=== PATIENT | male | born 1960 | race Caucasian/White ===

== ENCOUNTER 2017-06-30 06:17 | Emergency (ER) | payer SELFPAY ==
[~2017-06-30] VITALS: Ht 177.8 cm; Wt 88.0 kg
[~2017-06-30 06:17] MED LIST: CLIN1CAP6 PO; DOXY100T PO; TYLE3 PO; Z.0.NO CURRENT MEDS
[2017-06-30 06:20] VITALS: BP 200/102; PULSE 74; RESP 20; TEMP 98.3; O2SAT 98
--- NOTE | 2017-06-30 07:23 | PD ---
HPI Chief Complaint: cough/hemoptysis Time Seen by Provider: 07:11 Travel History International Travel<30 days: No Contact w/Intl Traveler<30days: No Traveled to known affect area: No History of Present Illness HPI 56yo M here with c/o worsening cough for the last 3 days associated with blood tinged sputum in the last 12 hours or so. Said he is a long time cigarette smoker but the cough is worst than normal. He has no PMH but has not seen a physician in years. Pt complains of nasal congestion, throat pain with coughing , and sob. Denies any fever, chest pain, nausea, abdominal pain, focal weakness or numbness. Denies any history of tuberculosis, PE/DVT, recent traveling, recent surgery. PFSH Past Medical History Medical History: Denies Significant Hx Tetanus Vaccination: < 5 Years Influenza Vaccination: No Past Surgical History Surgical History: No Previous Surgery Social History Alcohol Use: Yes (2 BEERS A DAY) Tobacco Use: Yes (04/27 A DAY) Substance Use: No Allergies-Medications (Allergen,Severity, Reaction): Coded Allergies: No Known Allergies (Verified Adverse Reaction, Unknown, 06/30/17) Reported Meds & Prescriptions Reported Meds & Active Scripts Active Review of Systems Except as stated in HPI: all other systems reviewed are Neg Physical Exam Narrative GENERAL: 56yo M in mild distress. SKIN: Focused skin assessment warm/dry. HEAD: Atraumatic. Normocephalic. EYES: Pupils equal and round. No scleral icterus. No injection or drainage. ENT: +Nasal congestion and edema in left nasal turbinate. Throat: Uvula midline , nonerythematous. No tonsillar exudate. NECK: Trachea midline. No JVD. CARDIOVASCULAR: Regular rate and rhythm. No murmur appreciated. RESPIRATORY: No accessory muscle use. Clear to auscultation. Breath sounds equal bilaterally. GASTROINTESTINAL: Abdomen soft, non-tender, nondistended. MUSCULOSKELETAL: No obvious deformities. No clubbing. No cyanosis. No edema. NEUROLOGICAL: Awake and alert. No obvious cranial nerve deficits. Motor grossly within normal limits. Normal speech. PSYCHIATRIC: Appropriate mood and affect; insight and judgment normal. Data Data Last Documented VS Vital Signs Date Time Temp Pulse Resp B/P (MAP) Pulse Ox O2 Delivery O2 Flow Rate FiO2 06/30/17 08:14 101 20 179/86 (117) 98 Room Air 1/5/18 06:20 98.3 Orders Orders Influenzae A/B Antigen (06/30/17 06:39) Complete Blood Count With Diff (06/30/17 07:18) Basic Metabolic Panel (Bmp) (06/30/17 07:18) B-Type Natriuretic Peptide (06/30/17 07:18) D-Dimer (06/30/17 07:18) Act Partial Throm Time (Ptt) (06/30/17 07:18) Prothrombin Time / Inr (Pt) (06/30/17 07:18) Troponin I (06/30/17 07:18) Influenzae A/B Antigen (06/30/17 07:18) Electrocardiogram (06/30/17 07:18) Chest, Single Ap (06/30/17 07:18) Methylprednisolone So Succ Inj (Solumedr (06/30/17 07:30) Albuterol-Ipratropium Neb (Duoneb Neb) (06/30/17 07:30) Hydralazine Inj (Apresoline Inj) (06/30/17 07:30) Ct Pulmonary Angiogram (06/30/17 ) Labs Laboratory Tests Test 06/30/17 07:30 White Blood Count 9.2 TH/MM3 Red Blood Count 5.05 MIL/MM3 Hemoglobin 16.7 GM/DL Hematocrit 47.5 % Mean Corpuscular Volume 94.2 FL Mean Corpuscular Hemoglobin 33.0 PG Mean Corpuscular Hemoglobin Concent 35.0 % Red Cell Distribution Width 13.0 % Platelet Count 123 TH/MM3 Mean Platelet Volume 8.2 FL Neutrophils (%) (Auto) 83.7 % Lymphocytes (%) (Auto) 4.9 % Monocytes (%) (Auto) 7.6 % Eosinophils (%) (Auto) 3.5 % Basophils (%) (Auto) 0.3 % Neutrophils # (Auto) 7.7 TH/MM3 Lymphocytes # (Auto) 0.5 TH/MM3 Monocytes # (Auto) 0.7 TH/MM3 Eosinophils # (Auto) 0.3 TH/MM3 Basophils # (Auto) 0.0 TH/MM3 CBC Comment DIFF FINAL Differential Comment Prothrombin Time 10.0 SEC Prothromb Time International Ratio 1.0 RATIO Activated Partial Thromboplast Time 30.6 SEC D-Dimer Quantitative (PE/DVT) 1.06 MG/L FEU Blood Urea Nitrogen 9 MG/DL Creatinine 0.85 MG/DL Random Glucose 116 MG/DL Calcium Level 8.9 MG/DL Sodium Level 138 MEQ/L Potassium Level 3.8 MEQ/L Chloride Level 104 MEQ/L Carbon Dioxide Level 27.4 MEQ/L Anion Gap 7 MEQ/L Estimat Glomerular Filtration Rate 94 ML/MIN Troponin I LESS THAN 0.02 NG/ML B-Type Natriuretic Peptide 40 PG/ML MDM Medical Decision Making Medical Screen Exam Complete: Yes Emergency Medical Condition: Yes Interpretation(s) EKG: NSR 75bpm. Normal axis. TWI V2. No ST segment elevation or depression. Differential Diagnosis Bronchitis vs. Pneumonia vs. malignancy vs. PE Narrative Course 56yo M with no significant PMH because he has not seen a physician in years here with c/o cough, sob for a few days. Pt came today because he started coughing up blood tinged sputum. Pt is speaking in complete sentences and saturating at 98% on RA. He does have elevated blood pressure here and does not have a history of HTN. Will give hydralazine and reevaluate. Pt has no wheezing but is a chronic cig smoker so will give duonebs and methylprednisolone and reevaluate. Pt reevaluated at bedside, feels a little better. CXR negative. Labs reviewed , no leukocytosis. Mild thrombocytopenia at 123,000. BNP normal at 40. Troponin negative. D-dimer elevated at 1.[address]io performed. CT angio showed no evidence of PE. Influenza negative. BP improved to 179/86 after hydralazine. Pt has no primary care physician so advised him [facility] Return precautions given. Diagnosis Primary Impression: Bronchitis Additional Impression: Elevated blood pressure reading Patient Instructions: General Instructions Departure Forms: Tests/Procedures Additional Instructions: Please follow up with [facility] for your elevated blood pressure and low platelet count. Return to the ED if symptoms worsen. Med/Other Pt SpecificInfo: Prescription(s) given Scripts Prednisone (Deltasone) 20 Mg Tab 20 MG PO BID for 5 Days, #10 TAB 0 Refills Prov: Shadia Mullins DO 06/30/17 Albuterol 18 GM Inh (Ventolin Hfa 18 GM Inh) 90 Mcg/Act Aer 2 PUFF INH Q4H Y for SHORTNESS OF BREATH, #1 INHALER 0 Refills Prov: Shadia Mullins DO 06/30/17 Amlodipine (Amlodipine) 5 Mg Tab 5 MG PO DAILY for Blood Pressure Management, #30 TAB 0 Refills Prov: Shadia Mullins DO 06/30/17 Disposition: 01 DISCHARGE HOME Condition: Stable Shadia Mullins DO Jun 30, 2017 07:23
[2017-06-30] MEDS: RESP: ALBUTEROL 2.5 MG/IPRATROPIUM 0.5 MG NEB (SCH) INH ×2 (07:26→07:27)
[2017-06-30] MEDS ORDERED: methylPREDNISolone SOD SUCC 125 MG/2 ML VIAL IV PUSH ONE (07:30)
[2017-06-30] MEDS ORDERED: hydrALAZINE HCL 20 MG/ML VIAL IV PUSH ONE (07:30)
[2017-06-30 07:45] LABS: AUTOMATED NEUTROPHIL # 7.7 TH/MM3 (1.8-7.7); BASOPHIL % 0.3 % (0.0-2.0); EOSINOPHIL # 0.3 TH/MM3 (0-0.4); EOSINOPHIL % 3.5 % (0.0-4.0); HEMATOCRIT 47.5 % (39.0-51.0); HEMOGLOBIN 16.7 GM/DL (13.0-17.0); LYMPH % 4.9 % (9.0-44.0); LYMPHOCYTE # 0.5 TH/MM3 (1.0-4.8); MEAN CELL VOLUME 94.2 FL (80.0-100.0); MEAN PLATELET VOLUME 8.2 FL (7.0-11.0); MONO % 7.6 % (0.0-8.0); MONOCYTE # 0.7 TH/MM3 (0-0.9); NEUT % 83.7 % (16.0-70.0); PLATELET COUNT 123 TH/MM3 (150-450); RED BLOOD COUNT 5.05 MIL/MM3 (4.50-5.90); WHITE BLOOD COUNT 9.2 TH/MM3 (4.0-11.0)
[2017-06-30 08:02] LABS: D-DIMER 1.06 MG/L FEU (0.00-0.50)
[2017-06-30 08:05] LABS: BICARBONATE 27.4 MEQ/L (21.0-32.0); BLOOD UREA NITROGEN 9 MG/DL (7-18); CALCIUM 8.9 MG/DL (8.5-10.1); CHLORIDE 104 MEQ/L (98-107); CREATININE 0.85 MG/DL (0.60-1.30); GLOMERULAR FILTRATION RATE 94 ML/MIN (>89); GLUCOSE,RANDOM 116 MG/DL (74-106); SODIUM (NA) 138 MEQ/L (136-145)
[2017-06-30 08:09] LABS: TROPONIN I LESS THAN 0.02 NG/ML (0.02-0.05)
--- NOTE | 2017-06-30 08:12 | RADRPT ---
EXAM DATE/TIME: 06/30/2017 07:38 [facility] COMPARISON: No previous studies available for comparison. INDICATIONS : Patient stated he's being short of breath and coughing up blood. MEDICAL HISTORY : None. SURGICAL HISTORY : None. ENCOUNTER: Initial ACUITY: 3 days PAIN SCORE: 0/10 LOCATION: Bilateral chest FINDINGS: A single view of the chest demonstrates the lungs to be symmetrically aerated without evidence of mas s, infiltrate or effusion. The cardiomediastinal contours are unremarkable. Osseous structures are intact. CONCLUSION: No acute cardiopulmonary disease. Juancarlos Burnett MD on June 30, 2017 at 8:07 Board Certified Radiologist. This report was verified electronically.
[2017-06-30 08:14] VITALS: BP 179/86; PULSE 101; RESP 20; O2SAT 98
--- NOTE | 2017-06-30 09:38 | RADRPT ---
EXAM DATE/TIME: 06/30/2017 08:57 [facility] COMPARISON: No previous studies available for comparison. INDICATIONS : Shortness of breath, hemoptysis with elevated d-dimer. IV CONTRAST: 73 cc Omnipaque 350 (iohexol) IV RADIATION DOSE: 19.93 CTDIvol (mGy) MEDICAL HISTORY : None SURGICAL HISTORY : None. ENCOUNTER: Initial ACUITY: 3 days PAIN SCALE: 0/10 LOCATION: TECHNIQUE: Volumetric scanning of the chest was performed using a pulmonary embolism protocol MIP images were re constructed. Using automated exposure control and adjustment of the mA and/or kV according to patien t size, radiation dose was kept as low as reasonably achievable to obtain optimal diagnostic quality images. DICOM format image data is available electronically for review and comparison. Follow-up recommendations for detected pulmonary nodules are based at a minimum on nodule size and pa tient risk factors according to Fleischner Society Guidelines. FINDINGS: Examination of the pulmonary vasculature demonstrates good filling of the main, lobar and segmental b ranches. There are no filling defects to suggest pulmonary embolism. Multiplanar reconstructions are also unremarkable. Examination of the lung spivey demonstrates no evidence of pulmonary nodule. No pleural fluid is iden tified. Examination of the mediastinum demonstrates no abnormally enlarged lymph nodes by CT criteria . No axillary or hilar abnormalities are identified. Coronary artery calcifications are present. The visualized upper abdomen demonstrates no abnormality. CONCLUSION: 1. No evidence of pulmonary embolism. Gui Allen MD on June 30, 2017 at 9:34 Board Certified Radiologist. This report was verified electronically.
[2017-06-30] MEDS ORDERED: VENTAER INH (10:11)
[2017-06-30] MEDS ORDERED: PRED-503 PO (10:11)
[2017-06-30] MEDS ORDERED: AMLO5TAB2 PO (10:11)
[2017-06-30] MEDS ORDERED: IOHEXOL 350 MG/ML 10 ML VIAL (for RAD DIAG) IVCONTRAST ONE (10:27)
[2017-06-30 10:36] VITALS: BP 145/73
--- NOTE | 2017-06-30 21:36 | EKG ---
Date Performed: 06/30/2017 Time Performed: 07:35:47 PTAGE: 56 years EKG: Sinus rhythm INCOMPLETE RIGHT BUNDLE BRANCH BLOCK BORDERLINE ECG NO PREVIOUS TRACING DOCTOR: Jose De Jesus Marc Interpretating Date/Time 06/30/2017 21:34:29
== END 2017-06-30 10:42 | disposition home or self-care (01) ==
LOC: NEPC 06:17
DX: J40 Bronchitis, not specified as acute or chronic (principal); R03.0 Elevated blood-pressure reading, without diagnosis of hypertension; F17.210 Nicotine dependence, cigarettes, uncomplicated; I45.10 Unspecified right bundle-branch block; R06.02 Shortness of breath
CPT/HCPCS: 71045; 71275; 80048; 83880; 84484; 85025; 85379; 85610; 85730; 87804; 93005; 94640; 94664; 96374; 96375; 99285; J0360; J2930; Q9967

== ENCOUNTER 2017-12-06 12:18 | Inpatient (IN) | payer SELFPAY ==
[2017-12-06] VITALS (8 sets, daily range): BP systolic 141–219; BP diastolic 78–103; PULSE 66–75; RESP 16–20; TEMP 98–98.3; O2SAT 96–99
[~2017-12-06] VITALS: Ht 177.8 cm; Wt 93.2 kg
[~2017-12-06 12:18] MED LIST changes: +AMLO5TAB2 PO; -CLIN1CAP6 PO; -DOXY100T PO; +PRED-503 PO; -TYLE3 PO; +VENTAER INH; -Z.0.NO CURRENT MEDS
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
[2017-12-06] MEDS ORDERED: ONDANSETRON ODT 4 MG TAB PO ONE (13:00)
[2017-12-06] MEDS ORDERED: MORPHINE SULFATE 4 MG/ML INJ IM ONE (13:00)
[2017-12-06] MEDS ORDERED: RESP: ALBUTEROL 2.5 MG/IPRATROPIUM 0.5 MG NEB (SCH) NEB ONE (13:00)
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
[2017-12-06] MEDS ORDERED: SODIUM CHLORIDE 0.9% FLUSH 10 ML FLUSH IVF PRN (13:45)
[2017-12-06 14:16] LABS: AUTOMATED NEUTROPHIL # 7.1 TH/MM3 (1.8-7.7); BASOPHIL % 0.3 % (0.0-2.0); EOSINOPHIL # 0.1 TH/MM3 (0-0.4); EOSINOPHIL % 1.4 % (0.0-4.0); HEMATOCRIT 51.8 % (39.0-51.0); HEMOGLOBIN 17.7 GM/DL (13.0-17.0); LYMPH % 12.4 % (9.0-44.0); LYMPHOCYTE # 1.1 TH/MM3 (1.0-4.8); MEAN CELL VOLUME 92.1 FL (80.0-100.0); MEAN CORPUSCULAR HEMOGLOBIN 31.5 PG (27.0-34.0); MEAN CORPUSCULAR HGB CONC 34.1 % (32.0-36.0); MEAN PLATELET VOLUME 8.3 FL (7.0-11.0); MONO % 8.9 % (0.0-8.0); MONOCYTE # 0.8 TH/MM3 (0-0.9); PLATELET COUNT 199 TH/MM3 (150-450); RED BLOOD COUNT 5.63 MIL/MM3 (4.50-5.90); RED CELL DISTRIBUTION WIDTH 13.5 % (11.6-17.2); WHITE BLOOD COUNT 9.3 TH/MM3 (4.0-11.0)
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
[2017-12-06] MEDS ORDERED: MIDAZOLAM HCL 2 MG/2 ML VIAL ONE ×2 (14:23→14:52)
[2017-12-06 14:26] LABS: BICARBONATE 29.9 MEQ/L (21.0-32.0); CALCIUM 9.7 MG/DL (8.5-10.1); CREATININE 0.88 MG/DL (0.60-1.30)
--- NOTE | 2017-12-06 15:08 | PD.RAD ---
Post Procedure Progress Note Pre Procedure Diagnosis: (1) Pneumothorax on right Post Procedure Diagnosis: (1) Pneumothorax on right Procedure Date: Dec 06, 2017 Supervising Radiologist: Abdoulaye Valdes JR Proceduralist/Assist: RT Mayra(R), Other Anesthesia: Conscious Sedation Plan of Activity Patient to Unit: Other Patient Condition: Good See PACS Report for procedural detail/treatment Drainage Procedure Procedure 1 Imaging Guidance: Fluoroscopy Side: Right Procedure Type: Chest Tube Non-Tunneled Procedure: Placement Spanish: 10 Findings: Right sided chest tube placed for large PTX. In good position. Plan F/U chest xray. Jr. Lucio,Abdoulaye Ley MD Dec 06, 2017 15:08
[2017-12-06] MEDS ORDERED: IOHEXOL 350 MG/ML 10 ML VIAL (for RAD DIAG) IVCONTRAST ONE (15:35)
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
[2017-12-06] MEDS ORDERED: MAGNESIUM HYDROXIDE SUSP 30 ML CUP PO PRN (17:45)
[2017-12-06] MEDS ORDERED: ACETAMINOPHEN/HYDROcodone 325 MG/5 MG TAB PO PRN (17:45)
[2017-12-06] MEDS ORDERED: ENALAPRILAT 1.25 MG/ML VIAL IV PUSH PRN (17:45)
[2017-12-06] MEDS ORDERED: ONDANSETRON HCL 4 MG/2 ML VIAL IV PUSH PRN (17:45)
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
[2017-12-06] MEDS ORDERED: ONDANSETRON ODT 4 MG TAB PO PRN ×2 (18:30)
[2017-12-06] MEDS ORDERED: HYDROmorphone HCL PF 2 MG/ML VIAL IV PUSH PRN (18:30)
[2017-12-06] MEDS: ACETAMINOPHEN/HYDROcodone 325 MG/5 MG TAB PO PRN (21:26)
[2017-12-06] MEDS: DOCUSATE SODIUM 100 MG CAP PO SCH (21:27)
[2017-12-06] MEDS: MULTIVITAMIN INJ 10 ML, THIAMINE INJ 100 MG, FOLIC ACID INJ 1 MG in SODIUM CHLORID 0.9%... IV SCH (21:27)
[2017-12-06] MEDS: SODIUM CHLORIDE 0.9% FLUSH 10 ML FLUSH IV FLUSH PRN (21:27)
[2017-12-06] MEDS: CYCLOBENZAPRINE HCL 10 MG TAB PO SCH (21:28)
[2017-12-06] MEDS: PANTOPRAZOLE SODIUM 40 MG VIAL IVP SCH (21:28)
[2017-12-07] VITALS (9 sets, daily range): BP systolic 134–189; BP diastolic 73–92; PULSE 58–73; RESP 17–20; TEMP 97.1–98.6; O2SAT 94–97
[2017-12-07] MEDS: ACETAMINOPHEN/HYDROcodone 325 MG/5 MG TAB PO PRN ×3 (01:42→09:52)
[2017-12-07 03:49] LABS: AUTOMATED NEUTROPHIL # 5.2 TH/MM3 (1.8-7.7); BASOPHIL % 0.3 % (0.0-2.0); EOSINOPHIL # 0.3 TH/MM3 (0-0.4); EOSINOPHIL % 3.8 % (0.0-4.0); HEMATOCRIT 44.8 % (39.0-51.0); HEMOGLOBIN 15.2 GM/DL (13.0-17.0); LYMPH % 17.3 % (9.0-44.0); LYMPHOCYTE # 1.3 TH/MM3 (1.0-4.8); MEAN CELL VOLUME 93.1 FL (80.0-100.0); MEAN CORPUSCULAR HEMOGLOBIN 31.6 PG (27.0-34.0); MEAN CORPUSCULAR HGB CONC 33.9 % (32.0-36.0); MEAN PLATELET VOLUME 8.3 FL (7.0-11.0); MONO % 10.3 % (0.0-8.0); MONOCYTE # 0.8 TH/MM3 (0-0.9); NEUT % 68.3 % (16.0-70.0); PLATELET COUNT 154 TH/MM3 (150-450); RED BLOOD COUNT 4.81 MIL/MM3 (4.50-5.90); RED CELL DISTRIBUTION WIDTH 13.3 % (11.6-17.2); WHITE BLOOD COUNT 7.6 TH/MM3 (4.0-11.0)
[2017-12-07 04:11] LABS: ALBUMIN 3.5 GM/DL (3.4-5.0); ALKALINE PHOSPHATASE 52 U/L (45-117); ALT (GPT) 34 U/L (12-78); AST (GOT) 18 U/L (15-37); BICARBONATE 30.6 MEQ/L (21.0-32.0); BLOOD UREA NITROGEN 10 MG/DL (7-18); CALCIUM 8.1 MG/DL (8.5-10.1); CHLORIDE 106 MEQ/L (98-107); CREATININE 0.88 MG/DL (0.60-1.30); GLOMERULAR FILTRATION RATE 90 ML/MIN (>89); GLUCOSE,RANDOM 102 MG/DL (74-106); SODIUM (NA) 143 MEQ/L (136-145); TOTAL BILIRUBIN ADULT 0.5 MG/DL (0.2-1.0); TOTAL PROTEIN 6.7 GM/DL (6.4-8.2)
[2017-12-07] MEDS: CYCLOBENZAPRINE HCL 10 MG TAB PO SCH ×3 (05:41→20:30)
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
[2017-12-07] MEDS: DOCUSATE SODIUM 100 MG CAP PO SCH ×2 (09:50→20:29)
[2017-12-07] MEDS: MAGNESIUM HYDROXIDE SUSP 30 ML CUP PO SCH ×2 (09:50→20:29)
[2017-12-07] MEDS: LIDOCAINE HCL 5% PATCH T-DERMAL SCH (09:51)
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
[2017-12-07] MEDS ORDERED: RESP: ALBUTEROL 2.5 MG/IPRATROPIUM 0.5 MG NEB (PRN) NEB (12:30)
[2017-12-07] MEDS ORDERED: oxyCODONE/ACETAMINOPHEN 5 MG/325 MG TAB PO PRN (12:30)
[2017-12-07] MEDS: RESP: ALBUTEROL 2.5 MG/IPRATROPIUM 0.5 MG NEB (SCH) NEB ×3 (12:30→21:01)
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
[2017-12-07] MEDS: KETOROLAC TROMETHAMINE 30 MG/ML (IVP) VIAL IV PUSH SCH ×2 (13:12→18:17)
[2017-12-07] MEDS: oxyCODONE/ACETAMINOPHEN 10 MG/325 MG TAB PO PRN (18:13)
[2017-12-07] MEDS: MULTIVITAMIN INJ 10 ML, THIAMINE INJ 100 MG, FOLIC ACID INJ 1 MG in SODIUM CHLORID 0.9%... IV SCH (20:28)
[2017-12-07] MEDS: PANTOPRAZOLE SODIUM 40 MG VIAL IVP SCH (20:31)
[2017-12-07] MEDS: SODIUM CHLORIDE 0.9% FLUSH 10 ML FLUSH IV FLUSH PRN (20:31)
[2017-12-07] MEDS ORDERED: REMOVE OLD LIDOCAINE PATCH T-DERMAL SCH (21:00)
[2017-12-08] VITALS (9 sets, daily range): BP systolic 106–165; BP diastolic 58–86; PULSE 68–80; RESP 14–19; TEMP 96–98.6; O2SAT 93–98
[2017-12-08] MEDS: KETOROLAC TROMETHAMINE 30 MG/ML (IVP) VIAL IV PUSH SCH ×3 (00:31→13:22)
[2017-12-08] MEDS: RESP: ALBUTEROL 2.5 MG/IPRATROPIUM 0.5 MG NEB (SCH) NEB ×3 (03:15→16:27)
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
[2017-12-08] MEDS: CYCLOBENZAPRINE HCL 10 MG TAB PO SCH ×2 (06:54→13:22)
[2017-12-08] MEDS ORDERED: DOCU1CAP39 PO (08:08)
[2017-12-08] MEDS ORDERED: MAGN30S PO (08:08)
[2017-12-08] MEDS: MAGNESIUM HYDROXIDE SUSP 30 ML CUP PO SCH (10:01)
[2017-12-08] MEDS: DOCUSATE SODIUM 100 MG CAP PO SCH (10:01)
[2017-12-08] MEDS: LIDOCAINE HCL 5% PATCH T-DERMAL SCH (10:01)
[2017-12-08] MEDS: oxyCODONE/ACETAMINOPHEN 10 MG/325 MG TAB PO PRN (10:23)
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
[2017-12-08] MEDS ORDERED: LIDO1ADH4 T-DERMAL ×2 (14:03→14:07)
[2017-12-08] MEDS ORDERED: OXYC1TAB63 PO (14:03)
[2017-12-08] MEDS ORDERED: CYCL10TA PO (14:03)
[2017-12-08] MEDS ORDERED: IBUP-232 PO (14:03)
--- NOTE | 2017-12-08 16:07 | RADRPT ---
EXAM DATE: 12/08/2017 4:04 PM EDT AGE/SEX: 57 years / Male INDICATIONS: F/U chest tube removal, right. CLINICAL DATA: This is the patient's initial encounter. Patient reports that signs and symptoms have been present for 1 day and indicates a pain score of 0/10. MEDICAL/SURGICAL HISTORY: None. None. COMPARISON: [facility], CHEST SINGLE AP, 12/08/2017. . FINDINGS: Interval right thoracostomy tube removal. No evidence of pneumothorax. Vascular crowding is exacerbat ed by expiratory technique. Stable cardiac contours. CONCLUSION: No pneumothorax Electronically signed by: Narciso Gilmore MD 12/08/2017 4:06 PM EDT
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
== END 2017-12-08 17:53 | disposition home or self-care (01) | DRG 200 ==
LOC: NEPE 12:18 → NEDA 16:43 → N06A 18:37
PROVIDERS: ADMIT Surgery; ATTEND Surgery
PROC: 0W9930Z Drainage of Right Pleural Cavity with Drainage Device, Percutaneous Approach (ICD-10-PCS; principal; 2017-12-06)
DX: S27.0XXA Traumatic pneumothorax, initial encounter (principal); S22.41XA Multiple fractures of ribs, right side, initial encounter for closed fracture; V18.4XXA Pedal cycle driver injured in noncollision transport accident in traffic accident, initial encounter; Y93.55 Activity, bike riding; I10 Essential (primary) hypertension; F17.200 Nicotine dependence, unspecified, uncomplicated; Z72.89 Other problems related to lifestyle; Z91.14 Patient's other noncompliance with medication regimen
CPT/HCPCS: 32557; 71045; 71046; 71260; 72125; 74177; 80048; 80053; 85025; 85610; 85730; 86850; 86900; 86901; 94150; 94640; 94664; 94667; 94668; 96374; 96375; 99152; 99153; C1729; C1769; C9113; J1885; J2250; J2270; J3010; J3411; J7040; Q9967